=== PATIENT | male | born 1955 | race Two or more races ===

== ENCOUNTER 2017-04-05 02:33 | Emergency (ER) | payer BC ==
[~2017-04-05 02:33] MED LIST: FLEXERIL10 MG PO; ORUDIS75 M1 PO
== END 2017-04-05 04:24 | disposition home or self-care (01) ==
LOC: CED 02:33
DX: K59.00 Constipation, unspecified (principal); Z79.899 Other long term (current) drug therapy
CPT/HCPCS: 99284